=== PATIENT | male | born 1970 | race Caucasian/White ===

== ENCOUNTER 2016-09-21 10:46 | Emergency (ER) | payer MEDICAID ==
--- NOTE | 2016-09-21 11:35 | ED Physician Chart ---
Chief Complaint/HPI - Patient Information Date Seen:: 09/21/16 Time Seen:: 11:28 Chief Complaint:: COUGH AND FEVER SINCE YESTERDAY. History of Present Illness:: This 45 year old male developed a dry cough yesterday accompanied by subjective fever and chills last evening. NO respiratory distress and no chest pain. NO peripheral edema and no history of HTN, DM or HD.The patient does not smoke. The patient denies having had any Hemoptysis. Allergies:: Allergies Allergy/AdvReac Type Severity Reaction Status Date / Time No Known Allergies Allergy Verified 05/21/16 10:44 Vitals:: Vital Signs - 8 hr 09/21/16 11:10 Temp 99.7 F HR 87 RR 17 BP 120/67 O2 Sat % 98 Review of Systems - Review of Systems General/Constitutional: Fever, Chills, No weakness, Diaphoresis, No loss of appetite, Other ( THE PATIENT HAS SUBJECTIVE FEVER.) Skin: No skin lesions, No rash Head: No headache, No light-headedness Eyes: No loss of vision, No diplopia ENT: No earache, No sore throat, No tinnitus Neck: No neck pain, No swelling, No stiffness, No mass noted Cardio Vascular: No chest pain, No palpitations, No orthopnea, No edema Pulmonary: No SOB, Cough, No sputum, No wheezing GI: No nausea, No vomiting, No diarrhea, No constipation, No hematemesis G/U: No dysuria, No frequency, No hematuria Musculoskeletal: No bone or joint pain, No back pain, No muscle pain Endocrine: No polyuria, No polydipsia Psychiatric: No prior psych history, No depression, No anxiety Hematopoietic: No bruising, No lymphadenopathy Allergic/Immuno: No urticaria, No angioedema Neurological: No syncope, No focal symptoms, No weakness, No paresthesia, No headache, No seizure, No dizziness, No confusion, No vertigo Past Medical History - Past Medical History Past Medical History: No significant medical hx, Dyslipidemia, Other ( The patient denies a past history of diabetes, hypertension or heart disease.) Social History: Non Smoker, No Alcohol, No Drug Use Surgical History: Appendectomy Psychiatricy History: None Family Medical History - Family Member Brother Ethnicity: Hx Family Cancer: No Hx Family Congestive Heart Failure: No Hx Family Hypertension: No Hx Family Diabetes: No Hx Family AIDS: No Hx Family HIV: No Hx Family Psychiatric Problems: No Physical Exam - Physical Examination General/Constitutional: Awake, Well-developed, well-nourished, Alert, No distress, GCS 15, Non-toxic appearing, Ambulatory Head: Atraumatic Eyes: Lids, conjuctiva normal, PERRL, EOMI Other Eyes comments:: pterygiums both eyes. NO nystagmus Skin: Nl inspection, No rash, No skin lesions Other Skin comments:: VERY WARM TO THE TOUCH. ENMT: External ears, nose nl, Lips, teeth, gums nl, Oropharynx nl, Tonsils nl Neck: Nontender, No JVD, No nuchal rigidity, No mass Respiratory: Nl effort/Exclusion, Clear to Auscultation, No Wheeze/Rhonchi/Rales Cardio Vascular: RRR, No murmur, gallop, rubs, NL S1 S2 Other Cardio Vascular comments:: EXCELLENT PULSES IN ALL EXTREMITIES. GI: No tenderness/rebounding/guarding, No organomegaly, No hernia, Normal BS's, Nondistended, No mass/bruits, No McBurney tenderness Other GI comments:: RECTAL EXAM DEFERRED AT MY DISCRETION. WELL HEALED APPY SCAR IN RLQ. : No CVA tenderness, NL external genitalia Extremities: No tenderness or effusion, Full ROM, normal strength in all extremities, No edema Other Extremities comments:: NEGATIVE SUMMERS'S SIGN Labs/Radiology/EKG Results - Lab Results Results: Laboratory Tests 09/21/16 09/21/16 12:00 12:00 WBC 12.5 H D RBC 5.12 Hgb 14.1 Hct 42.7 MCV 83.3 MCH 27.6 MCHC Differential 33.1 RDW 12.4 Plt Count 265 MPV 7.7 Band Neutrophils % 2 Neutrophils (Manual) 76 Lymphocytes 10 L Monocytes 12 H Platelet Estimate ADEQUATE Platelet Morphology NORMAL RBC Morph Micro Appear NORMAL Sodium 136 Potassium 3.8 Chloride 99 Carbon Dioxide 28.2 Anion Gap 12.6 BUN 17 Creatinine 1.0 Est GFR ( Amer) > 60.0 Est GFR (Non-Af Amer) > 60.0 BUN/Creatinine Ratio 17.0 Glucose 106 H Calcium 9.5 LAB INTERPRETATION: THE CBC shows a mild leukocytosis of 12.5. There is no anemia and platelets are adequate. The electrolytes are all within normal parameters. Renal function is normal. SINGLE VIEW CHEST X-ray: no cardiomegaly or CHF. No mediastinal whitening. No pneumothorax. No areas of pulmonary infiltrates or consolidation. IMPRESSION : no acute cardio-pulmonary findings Assessment - Assessment General Assessment: CASE SUMMARY: this 45-year-old male presents with a one-day history of nonproductive cough accompanied by subjective fever and had chills last evening. He denies any hemoptysis. No chest pain and no respiratory distress. The white count was mildly elevated at 12.5. Chest x-ray showed no evidence of acute cardiopulmonary pathology. My impression is acute bronchitis. Patient will be discharged with a prescription for albuterol as a metered dose inhaler. Patient is referred to as primary care physician for routine follow-up. He should return to the emergency department if he has significant worsening of his symptoms, difficulty breathing, or chest pain. MDM DDX FOR ACUTE COUGH: NOT PNEUMONIA BASED ON THE NEGATIVE CHEST X-RAY. NOT Pulmonary embolism based on PERC Criteria. NOT CHF Based on patient history and physical exam and negative chest x-ray. NOT Pneumothorax based on the negative chest x-ray. ED Septic Shock - . Is Septic Shock (SBP<90, OR Lactate>4 mmol\L) present?: No - <6hrs of presentation: Vital Signs: Vital Signs - 8 hr 09/21/16 11:10 Temp 99.7 F HR 87 RR 17 BP 120/67 O2 Sat % 98 Reassessment (Disposition) - Reassessment Reassessment Condition:: Unchanged - Diagnosis Diagnosis:: ACUTE RESPIRATORY INFECTION. discharged with prescription for albuterol MDI to be used to PUFFS every 4 to 6 hours as needed for cough or wheezing. - Aftercare/Follow up Instructions Aftercare/Follow-Up Instructions:: Counseled pt regarding lab results/diagnosis & need follow up, Refer to Discharge Instructions - Patient Disposition Discharge/Transfer:: Home ED Discharge Plan - Patient Disposition Admit/Discharge/Transfer: PT DISCHARGED HOME Condition at Disposition: Stable Instructions: Upper Respiratory Infection, Adult, [id number] Forms: Work Release Form
[2016-09-21 12:12] LABS: HEMATOCRIT 42.7 % (39.0-49.0); HEMOGLOBIN 14.1 gm/dL (13.2-17.3); MEAN CELL VOLUME 83.3 fl (80-99); MEAN CORPUSCULAR HEMOGLOBIN 27.6 pg (26.0-30.0); MEAN CORPUSCULAR HGB CONC 33.1 pg (28.0-36.0); MEAN PLATELET VOLUME 7.7 fl; PLATELET COUNT 265 Th/cmm (150-400); RED BLOOD COUNT 5.12 Mil/cmm (4.30-5.70); RED CELL DISTRIBUTION WIDTH 12.4 % (11.5-20.0)
[2016-09-21 12:15] LABS: WHITE BLOOD COUNT 12.5 Th/cmm (4.8-10.8)
[2016-09-21 12:21] LABS: ANION GAP 12.6 (7.0-16.0); BUN - UREA NITROGEN 17 mg/dL (7-25); CALCIUM SERUM 9.5 mg/dL (8.6-10.3); CARBON DIOXIDE 28.2 mEq/L (21.0-31.0); CHLORIDE 99 mEq/L (98-107); GLUCOSE 106 mg/dL (70-105); POTASSIUM SERUM 3.8 mEq/L (3.5-5.1); SODIUM SERUM 136 mEq/L (136-145)
[2016-09-21 12:34] LABS: BAND NEUTROPHILE 2 % (0-10); NEUTROPHILS 76 % (40-80); TOTAL CELLS COUNTED 100
[2016-09-21 12:35] LABS: PLATELET ESTIMATE ADEQUATE (NORMAL); PLATELET MORPHOLOGY NORMAL (NORMAL)
--- NOTE | 2016-09-21 13:45 | Diagnostic Imaging Report ---
Portable chest x-ray History: Cough Allowing for portable technique the heart size is normal. No focal pulmonary parenchymal processes. No hilar or mediastinal abnormalities. Impression: No acute abnormalities.
== END 2016-09-21 13:34 | disposition home or self-care (01) ==
LOC: ER 10:46
DX: J22 Unspecified acute lower respiratory infection (principal)
CPT/HCPCS: 36415-UA; 71010-TC; 80048-TC; 85007-TC; 85027-TC

== ENCOUNTER 2017-02-17 07:33 | Emergency (ER) | payer MEDICAID ==
--- NOTE | 2017-02-17 07:50 | ED Physician Chart ---
Chief Complaint/HPI - Patient Information Date Seen:: 02/17/17 Time Seen:: 07:40 Chief Complaint:: Chest pain since 5 am today. History of Present Illness:: Pt is Croatian speaking. Interpretation is provided by his daughter Kayli per pt 's request. Pt was brought in by private auto because of sudden onset of localized L sided chest pain when he was in bed at about 5 am that woke him up. Chest pain is characterized as sharp and intermittent. Pain can be precipitated with exertion, but not necessarily relieved with rest. No diaphoresis or palpitation. No fever or cough. Pt denies any dyspnea, PND, orthopnea, or ankle edema. Allergies:: Allergies Allergy/AdvReac Type Severity Reaction Status Date / Time No Known Allergies Allergy Verified 05/21/16 10:44 Vitals:: see Nurse Note. Historian:: Patient Family MD/PCP:: Dr. Eaton LMP:: N/A Review:: Nurse's Note Reviewed Review of Systems - Review of Systems General/Constitutional: No fever, No chills, No weight loss, No weakness, No diaphoresis, No edema, No loss of appetite Skin: No skin lesions Head: No headache, No light-headedness Eyes: No loss of vision ENT: No earache, No nasal drainage, No sore throat Neck: No neck pain, No thyromegaly, No stiffness Cardio Vascular: Chest pain, No palpitations, No PND, No orthopnea, No edema Pulmonary: No SOB, No cough, No wheezing GI: No nausea, No vomiting, No diarrhea, No pain Musculoskeletal: No bone or joint pain, No back pain, No muscle pain Psychiatric: No prior psych history Hematopoietic: No bruising, No lymphadenopathy Allergic/Immuno: No urticaria, No angioedema Neurological: No syncope, No focal symptoms (? bilateral hand numbness), No headache, No confusion Past Medical History - Past Medical History Past Medical History: Dyslipidemia Family History: Heart disease (One daughter has ?congenital heart condition.), Diabetes Melitus (sister) Social History: Non Smoker, No Alcohol, No Drug Use, , Employed, Other ( lives with his .) Employment:: [employer]. Surgical History: Appendectomy (about 21 y/a) Psychiatricy History: None Medication: Reviewed Family Medical History - Family Member Brother Ethnicity: Hx Family Cancer: No Hx Family Congestive Heart Failure: No Hx Family Hypertension: No Hx Family Diabetes: No Hx Family AIDS: No Hx Family HIV: No Hx Family Psychiatric Problems: No Physical Exam - Physical Examination General/Constitutional: Awake, Well-developed, well-nourished, Alert, No distress, GCS 15, Non-toxic appearing, Ambulatory Other Gen/Cons comments:: Breathes comfortably, speaks clearly, and ambulates without difficulty. Head: Atraumatic Eyes: Lids, conjuctiva normal, PERRL, EOMI Skin: Nl inspection, No rash, No skin lesions, No ecchymosis, Well hydrated, No lymphadenopathy ENMT: External ears, nose nl, Nasal exam nl, Oropharynx nl Neck: Nontender, Full ROM w/o pain, No JVD, No nuchal rigidity, No bruit, No mass, No stridor Respiratory: Nl effort/Exclusion, Clear to Auscultation, No Wheeze/Rhonchi/Rales Cardio Vascular: RRR, No murmur, gallop, rubs Other Cardio Vascular comments:: Chest wall shows significant pectus excavatum. GI: No tenderness/rebounding/guarding, No organomegaly, No hernia, Normal BS's, Nondistended, No mass/bruits Other GI comments:: Abdomen is soft. Extremities: No edema Neuro/Psych: Alert/oriented (oriented x 3.), Judgement/insight normal, Mood normal, Normal gait, No focal deficits Other Neuro/Psych comments:: No defintie hand numbness detected. Labs/Radiology/EKG Results - Lab Results Results: Laboratory Tests 02/17/17 02/17/17 02/17/17 08:06 08:06 08:06 WBC 5.9 D RBC 5.21 Hgb 14.6 Hct 44.0 MCV 84.4 MCH 27.9 MCHC Differential 33.1 RDW 12.1 Plt Count 273 MPV 7.6 Neutrophils % 61.9 Lymphocytes % 29.1 Monocytes % 7.6 Eosinophils % 1.1 Basophils % 0.3 PT 9.3 L INR 0.90 Sodium 135 L Potassium 3.6 Chloride 103 Carbon Dioxide 28.4 Anion Gap 7.2 BUN 16 Creatinine 0.9 Est GFR ( Amer) > 60.0 Est GFR (Non-Af Amer) > 60.0 BUN/Creatinine Ratio 17.8 Glucose 106 H Calcium 9.5 Total Bilirubin 0.5 AST 27 ALT 26 Alkaline Phosphatase 76 Creatine Kinase 261 H CK-MB (CK-2) 2.8 Troponin I B-Natriuretic Peptide Total Protein 7.3 Albumin 4.3 Globulin 3.0 Albumin/Globulin Ratio 1.4 Triglycerides 188 H Cholesterol 251 H LDL Cholesterol Direct 163 HDL Cholesterol 52 02/17/17 08:06 WBC RBC Hgb Hct MCV MCH MCHC Differential RDW Plt Count MPV Neutrophils % Lymphocytes % Monocytes % Eosinophils % Basophils % PT INR Sodium Potassium Chloride Carbon Dioxide Anion Gap BUN Creatinine Est GFR ( Amer) Est GFR (Non-Af Amer) BUN/Creatinine Ratio Glucose Calcium Total Bilirubin AST ALT Alkaline Phosphatase Creatine Kinase CK-MB (CK-2) Troponin I < 0.01 L B-Natriuretic Peptide 7.3 Total Protein Albumin Globulin Albumin/Globulin Ratio Triglycerides Cholesterol LDL Cholesterol Direct HDL Cholesterol - Radiology Results Results: PCXR: Based on my interpretation, mild cardiomegaly; otherwise, NAD. Official report is pending. - EKG Interpretations EKG Time:: 07:49 Rate & Rhythm: NSR with VR 66 Comments:: No acute ischemic changes. hall monitor: NSR with VR 74. No ectopy. Assessment - Assessment Critical Care Time: About 30 minutes. ED Septic Shock - . Is Septic Shock (SBP<90, OR Lactate>4 mmol\L) present?: No Reassessment (Disposition) - Reassessment Reassessment:: 0830 Pt has been repeatedly evaluated. His chest pain was completely resolved after one sublingual nitroglycerin. Pt now feels comfortable without new complaint. 1040 Pt remains stable. EKG, CXR, and lab findings had been reviewed with pt. Management plan had been discussed. Pt was recommended to admit to hospital for further evaluation/management. Pt decided to sign out AMA. Indications for further in hospital care, related benefits and risks, including risks for leaving AMA had been well explained to pt through interpretation by my nurse Mr. Rodrigo Lopez. Pt acknowledged understanding but still chose to leave AMA. He signed the AMA form, witnessed by my nurse Mr. Rodrigo Lopez. Pt was explained that if he changes his mind, he is welcomed to return anytime. Pt acknowledged understanding and appreciated our effort in caring for him. Reassessment Condition:: Improved - Diagnosis Diagnosis:: Chest pain, consider cardiac ischemia. Stable and currently asymptomatic. - Aftercare/Follow up Instructions Medication Prescribed:: None - Patient Disposition Discharge/Transfer:: Against Medical Advice Time:: 10:40 Condition at Disposition:: Stable, Improved ED Discharge Plan - Patient Disposition Admit/Discharge/Transfer: AGAINST MEDICAL ADVICE Condition at Disposition: Stable
[2017-02-17 08:21] LABS: % BASOPHILS 0.3 % (0.0-2.0); % EOSINOPHILS 1.1 % (0.0-5.0); % LYMPHOCYTES 29.1 % (20.0-50.0); % MONOCYTES 7.6 % (2.0-10.0); % NEUTROPHILS 61.9 % (40.0-80.0); HEMOGLOBIN 14.6 gm/dL (13.2-17.3); MEAN CELL VOLUME 84.4 fl (80-99); MEAN CORPUSCULAR HEMOGLOBIN 27.9 pg (26.0-30.0); MEAN CORPUSCULAR HGB CONC 33.1 pg (28.0-36.0); MEAN PLATELET VOLUME 7.6 fl; NEUTROPHILE ABSOLUTE 3.7 Th/cmm (1.8-8.0); PLATELET COUNT 273 Th/cmm (150-400); RED BLOOD COUNT 5.21 Mil/cmm (4.30-5.70); RED CELL DISTRIBUTION WIDTH 12.1 % (11.5-20.0)
[2017-02-17 08:23] LABS: WHITE BLOOD COUNT 5.9 Th/cmm (4.8-10.8)
[2017-02-17 08:27] LABS: INR 0.9 (0.5-1.4); PROTHROMBIN TIME (TEST) 9.3 SECONDS (9.5-11.5)
[2017-02-17] MEDS ORDERED: NITROGLYCERIN OINT 2% 1 INCH PACKET TP STA (08:27)
[2017-02-17 08:28] LABS: ALB/GLOB RATIO 1.4 (1.0-1.8); ALKALINE PHOSPHATASE 76 U/L (34-104); ANION GAP 7.2 (7.0-16.0); BILIRUBIN,TOTAL 0.5 mg/dL (0.3-1.0); BUN - UREA NITROGEN 16 mg/dL (7-25); BUN/CREATININE RATIO 17.8; CALCIUM SERUM 9.5 mg/dL (8.6-10.3); CARBON DIOXIDE 28.4 mEq/L (21.0-31.0); CHLORIDE 103 mEq/L (98-107); CHOLESTEROL 251 mg/dL (<200); CREATININE - SERUM 0.9 mg/dL (0.7-1.3); GLUCOSE 106 mg/dL (70-105); POTASSIUM SERUM 3.6 mEq/L (3.5-5.1); SGOT 27 U/L (13-39); SGPT/ALT 26 U/L (7-52); SODIUM SERUM 135 mEq/L (136-145); TRIGLYCERIDES 188 mg/dL (<150)
[2017-02-17] MEDS ORDERED: NITROGLYCERIN OINT 2% 1 INCH PACKET TP ONE (08:31)
[2017-02-17 08:34] LABS: TROP I < 0.01 ng/mL (0.01-0.05)
[2017-02-17 08:35] LABS: BNP 7.3 pg/mL (5.0-100.0)
[2017-02-17 09:16] LABS: CREATINE KINASE MB 2.8 ng/mL (0.6-6.3)
--- NOTE | 2017-02-17 10:27 | Diagnostic Imaging Report ---
CHEST X-RAY: AP view INDICATION: Chest pain COMPARISON: Chest x-ray to 09/21/2016 FINDINGS: Mild chronic lung changes are noted. There is no focal consolidation or pleural effusions The heart is normal in size. The osseous structures demonstrate no acute abnormalities. IMPRESSION: No focal consolidation identified.
== END 2017-02-17 10:52 | disposition left against medical advice (07) ==
LOC: ER 07:33
DX: R07.89 Other chest pain (principal); E78.5 Hyperlipidemia, unspecified; Z90.49 Acquired absence of other specified parts of digestive tract
CPT/HCPCS: 36415-UA; 71010-TC; 80053-TC; 80061-TC; 82550-TC; 82553; 83880-TC; 84484-TC; 85025-TC; 85610-TC; 93005; 94760; Z7502

== ENCOUNTER 2017-12-14 15:02 | Emergency (ER) | payer MEDICAID ==
--- NOTE | 2017-12-14 15:22 | ED Physician Chart ---
ED Chief Complaint/HPI - Patient Information Date Seen:: 12/14/17 Time Seen:: 15:17 Chief Complaint:: Left fingers crush injuries History of Present Illness:: 47 yo male had crush injuries to right second and third fingers when a car trunk closed by gravity about 1 hour and half ago. Numbness on the distal part of the right second finger. Both fingers are movable. Allergies:: Allergies Allergy/AdvReac Type Severity Reaction Status Date / Time No Known Allergies Allergy Verified 05/21/16 10:44 Vitals:: Vital Signs - 8 hr 12/14/17 15:10 Temp 98.0 F HR 67 RR 15 BP 124/77 O2 Sat % 98 ED Review of Systems - Review of Systems General/Constitutional: No fever Skin: Skin lesions Head: No headache Eyes: No pain ENT: No earache Neck: No neck pain Cardio Vascular: No chest pain Pulmonary: No SOB GI: No nausea, No vomiting Musculoskeletal: Bone or joint pain Neurological: No focal symptoms ED Past Medical History - Past Medical History Past Medical History: Dyslipidemia Social History: Non Smoker, No Alcohol, No Drug Use Surgical History: Appendectomy Family Medical History - Family Member Brother History Unknown: Yes Ethnicity: Hx Family Cancer: No Hx Family Congestive Heart Failure: No Hx Family Hypertension: No Hx Family Diabetes: No Hx Family AIDS: No Hx Family HIV: No Hx Family Psychiatric Problems: No ED Physical Exam - Physical Examination General/Constitutional: Awake Head: Atraumatic Eyes: PERRL Skin: No skin lesions ENMT: Nasal exam nl Neck: No nuchal rigidity Respiratory: No Wheeze/Rhonchi/Rales Cardio Vascular: RRR, No murmur, gallop, rubs, NL S1 S2 GI: No tenderness/rebounding/guarding Other Extremities comments:: Tenderness on distal second and third fingers, normal ROM. Neuro/Psych: No focal deficits ED Labs/Radiology/EKG Results - Radiology Results Results: X ray of right 2nd and 3rd digits: no fracture ED Assessment - Assessment General Assessment: Right second and third finger contusion Assessment/Comments:: X ray of right 2nd and 3rd fingers D/c home Ibuprofen 200mg po prn F/u PCP or return to ER if finger pain worsen ED Septic Shock - . Is Septic Shock (SBP<90, OR Lactate>4 mmol\L) present?: No - <6hrs of presentation: Vital Signs: Vital Signs - 8 hr 12/14/17 15:10 Temp 98.0 F HR 67 RR 15 BP 124/77 O2 Sat % 98 ED Reassessment (Disposition) - Reassessment Reassessment Condition:: Improved - Patient Disposition Discharge/Transfer:: Home ED Discharge Plan - Patient Disposition Instructions: Hand Contusion
--- NOTE | 2017-12-15 09:32 | Diagnostic Imaging Report ---
Exam: Right third finger HISTORY: Trauma Findings: Multiple views of right third finger demonstrate no evidence of fractures location soft tissue swelling present impression: Normal examination of the right third finger
--- NOTE | 2017-12-15 09:40 | Diagnostic Imaging Report ---
Exam: Right second finger HISTORY: Trauma. Findings: Multiple views of right second finger reviewed the study demonstrates no evidence of fractures location of soft tissue swelling. IMPRESSION: Normal examination right second finger
== END 2017-12-14 16:12 | disposition home or self-care (01) ==
LOC: ER 15:02
DX: S60.021A Contusion of right index finger without damage to nail, initial encounter (principal); S60.031A Contusion of right middle finger without damage to nail, initial encounter; E78.5 Hyperlipidemia, unspecified; Z90.49 Acquired absence of other specified parts of digestive tract; X58.XXXA Exposure to other specified factors, initial encounter; Y93.89 Activity, other specified; Y92.89 Other specified places as the place of occurrence of the external cause; Y99.8 Other external cause status
CPT/HCPCS: 73140-TC-F6; 73140-TC-F7; Z7502